=== PATIENT | female | born 1990 | race African-American/Black ===

== ENCOUNTER 2022-06-16 01:22 | Emergency (ER) | payer OTHER | END 2022-06-16 04:49 | disposition home or self-care (01) | LOC: CSHERS 01:22 | DX: O99.891 Other specified diseases and conditions complicating pregnancy (principal); R10.32 Left lower quadrant pain; Z3A.19 19 weeks gestation of pregnancy | CPT/HCPCS: 76815 ==

== ENCOUNTER 2022-10-02 08:07 | Day surgery (SDC) | payer MEDICAID, OTHER ==
[2022-10-02] MEDS ORDERED: hydrALAZINE 20 MG/ML VIAL SLOW IVP PRN (08:53)
[2022-10-02 09:39] LABS: Fetal Membranes Rupture No Membranes Rupture (No Rupture)
== END 2022-10-02 10:45 | disposition home health service (06) ==
LOC: CSHLD/OP 08:07
PROVIDERS: ATTEND Obstetrics & Gynecology
DX: O98.813 Other maternal infectious and parasitic diseases complicating pregnancy, third trimester (principal); B37.31 Acute candidiasis of vulva and vagina; Z03.71 Encounter for suspected problem with amniotic cavity and membrane ruled out; Z3A.34 34 weeks gestation of pregnancy
CPT/HCPCS: 84112; 87480; 87510; 87660; 99285

== ENCOUNTER 2022-10-14 08:59 | Inpatient (IN) | payer MEDICAID ==
[2022-10-14 09:21] VITALS: BMI 21.4
[2022-10-14] MEDS ORDERED: Ondansetron PF 4 MG/2 ML Vial IVP PRN (09:31)
[2022-10-14] MEDS ORDERED: Boostrix 0.5 ML (Tdap) VIAL (>/=7 yrs of age) IM ONE (09:31)
[2022-10-14] MEDS ORDERED: Milk Of Magnesia 30 ML UDCUP PO PRN (09:31)
[2022-10-14] MEDS ORDERED: Misoprostol 200 MCG TAB VAG PRN (09:31)
[2022-10-14] MEDS ORDERED: Bisacodyl 10 MG SUPP PR PRN (09:31)
[2022-10-14] MEDS ORDERED: hydrALAZINE 20 MG/ML VIAL SLOW IVP PRN (09:31)
[2022-10-14] MEDS ORDERED: Benzocaine-Menthol 82.5 ML CAN TOP PRN (09:31)
[2022-10-14] MEDS ORDERED: Lidocaine 1% (PF) 30 ML VIAL SC PRN (09:31)
[2022-10-14] MEDS ORDERED: NS w/ Oxytocin 30 units 500 ML IV SCH (09:45)
[2022-10-14] MEDS: Ibuprofen 800 MG TAB PO SCH ×3 (10:11→19:07)
[2022-10-14] MEDS ORDERED: HYDROcodone/Acetaminophen 5/325 mg Tablet PO SCH (10:30)
[2022-10-14 11:18] LABS: Bilirubin Neg (Negative); Blood, Urine 250 (Negative); Glucose, Urine (Dipstick) Normal (Negative); Ketone, Urine Negative (Negative); Leukocyte 500 (Negative); Nitrite Negative (Negative); Protein, Urine (Dipstick) 100 mg/dl (Neg-Trace); Urobilinogen Normal mg/dL (Less than 2)
[2022-10-14 11:28] LABS: Hemoglobin 9.8 g/dL (12.0-15.5); Mean Corpuscular HGB CONC 31.9 g/dL (32.0-36.0); Mean Corpuscular Hemoglobin 22.6 pg (27.0-33.0); Mean Corpuscular Volume 70.7 fl (81.6-98.3); Mean Platelet Volume 10.1 fl (7.4-10.4); Platelet Count 273 10x3/uL (150-450); RBC Distribution Width 17.4 % (11.5-14.5); Red Blood Cell (RBC) Count 4.34 10x6/uL (3.90-5.03); White Blood Cell (WBC) Count 13.2 10x3/uL (3.5-10.5)
[2022-10-14 11:29] LABS: Amphetamine Not Detected (NotDetected); Barbiturates Screen Not Detected (NotDetected); Benzodiazepine Screen Not Detected (NotDetected); Clarity Cloudy (Clear); Cocaine Metabolite Screen Not Detected (NotDetected); Methadone Not Detected (NotDetected); Methamphetamine Not Detected (NotDetected); Opiate Screen Not Detected (NotDetected); Oxycodone Screen Not Detected (NotDetected); Phencyclidine (PCP) Not Detected (NotDetected); THC/Cannabinoid Screen Not Detected (NotDetected); Tricyclic Screen Not Detected (NotDetected)
[2022-10-14 11:39] LABS: RBC/HPF Greater than 50 HPF (0-3)
[2022-10-14 11:40] LABS: Bacteria/HPF Rare-Few HPF (None Seen); Squamous Epithelial 0-3 HPF (0-3)
[2022-10-14 12:07] LABS: Syphilis Antibody Nonreactive (Nonreactive); Syphilis Antibody Index 0.07 S/CO (<1.00 Non-Reactive)
[2022-10-14 12:08] LABS: HIV (1/2) Antibody/Antigen Non-Reactive (NonReactive); HIV 1/2 INDEX 0.09 S/CO (<1.00)
[2022-10-14 15:34] LABS: HBSAB Concentration 14239.54 mIU/mL
[2022-10-14 15:35] LABS: Hep B Surf AB Reactive (NonReactive)
[2022-10-14 17:02] LABS: SARS-CoV-2 NAA Rapid Test Not Detected (NotDetected)
[2022-10-14] MEDS: Ferrous Sulfate 325 MG TAB PO SCH (19:08)
[2022-10-14] MEDS: Docusate 100 MG CAP PO SCH (21:19)
[2022-10-14 23:27] LABS: HBSAg Index 0.24 S/CO (0-0.99); Hep B Surf Ag Non-Reactive S/CO (NonReactive)
[2022-10-15] MEDS: Ibuprofen 800 MG TAB PO SCH ×3 (01:01→18:07)
[2022-10-15] MEDS: Prenatal Vitamin 1 TAB PO SCH (08:09)
[2022-10-15] MEDS: Docusate 100 MG CAP PO SCH ×2 (08:09→21:18)
[2022-10-15] MEDS: Ferrous Sulfate 325 MG TAB PO SCH ×2 (08:09→18:07)
[2022-10-15 21:41] VITALS: TEMP 98.4
[2022-10-16] MEDS: Ibuprofen 800 MG TAB PO SCH ×2 (01:57→14:04)
[2022-10-16] MEDS: Docusate 100 MG CAP PO SCH (08:02)
[2022-10-16] MEDS: Prenatal Vitamin 1 TAB PO SCH (08:02)
[2022-10-16] MEDS: Ferrous Sulfate 325 MG TAB PO SCH (08:02)
[2022-10-16 09:26] VITALS: BP 130/72
== END 2022-10-16 15:15 | disposition home or self-care (01) | DRG 776 ==
LOC: CSHLD/OP 08:59 → CSHLD 09:04 → CSHPP 11:31
PROVIDERS: ADMIT Obstetrics & Gynecology; ATTEND Obstetrics & Gynecology
DX: O99.03 Anemia complicating the puerperium (principal); D57.3 Sickle-cell trait; Z20.822 Contact with and (suspected) exposure to COVID-19; Z88.5 Allergy status to narcotic agent
CPT/HCPCS: 80306; 81001; 85027; 86706; 86762; 86780; 86850; 86900; 86901; 87340; 87389; U0002

== ENCOUNTER 2024-06-21 21:34 | Inpatient (IN) | payer BC, MEDICAID ==
[2024-06-21 22:00] VITALS: BMI 23.6
[2024-06-21] MEDS ORDERED: Misoprostol 200 MCG TAB PR PRN (22:31)
[2024-06-21] MEDS ORDERED: Tranexamic Acid 1,000 MG/10 ML VIAL IVP PRN (22:31)
[2024-06-21] MEDS ORDERED: Lidocaine 1% (PF) 30 ML VIAL SC PRN (22:31)
[2024-06-21] MEDS ORDERED: Carboprost 250 MCG/ML AMP IM PRN (22:31)
[2024-06-21] MEDS ORDERED: hydrALAZINE 20 MG/ML VIAL SLOW IVP PRN (22:31)
[2024-06-21] MEDS ORDERED: Ondansetron PF 4 MG/2 ML Vial IVP PRN (22:31)
[2024-06-21] MEDS ORDERED: Acetaminophen 500 MG TAB PO PRN (22:31)
[2024-06-21] MEDS ORDERED: Promethazine HCl 25 MG/ML VIAL IM PRN (22:31)
[2024-06-21] MEDS ORDERED: Zolpidem Tartrate 5 MG TAB PO PRN (22:31)
[2024-06-21] MEDS ORDERED: Ibuprofen 800 MG TAB PO PRN (22:31)
[2024-06-21] MEDS ORDERED: Magnesium Sulfate 20 gm/500 ml 20 GM/500 ML BAG IVPB SCH (22:45)
[2024-06-21] MEDS ORDERED: Oxytocin 30 units/NS 500 ML 500 ML IV SCH (22:45)
[2024-06-21] MEDS: Magnesium Sulfate 20 gm/500 ml 20 GM/500 ML BAG IVPB SCH (22:49)
[2024-06-21] MEDS: Betamet Acet/Betamet Na Ph 30 MG/5 ML VIAL IM SCH (22:50)
[2024-06-21 23:04] LABS: Hematocrit 25.6 % (34.9-44.5); Hemoglobin 8.3 g/dL (12.0-15.5); Mean Corpuscular HGB CONC 32.4 g/dL (32.0-36.0); Mean Corpuscular Hemoglobin 22.5 pg (27.0-33.0); Mean Corpuscular Volume 69.4 fL (81.6-98.3); Mean Platelet Volume 10.3 fL (7.4-10.4); Platelet Count 274 10x3/uL (150-450); RBC Distribution Width 16.9 % (11.5-14.5); Red Blood Cell (RBC) Count 3.69 10x6/uL (3.90-5.03); White Blood Cell (WBC) Count 9.7 10x3/uL (3.5-10.5)
[2024-06-21 23:36] LABS: HBsAg Index 0.26 S/CO (0-0.99); Hep B Surf Ag - L&D Non-Reactive S/CO (NonReactive)
[2024-06-21 23:38] LABS: Syphilis Antibody Nonreactive (Nonreactive); Syphilis Antibody Index 0.07 S/CO (<1.00 Non-Reactive)
[2024-06-21] MEDS: Penicillin G Potassium 5 MILL.UNITS in Sodium Chloride 0.9% 100 ML IVPB SCH (23:49)
[2024-06-21 23:53] LABS: ALT (SGPT) Less than 7 U/L (8-55); AST (SGOT) 11 U/L (5-34); Alkaline Phosphatase 134 U/L (40-110); Anion Gap 14 mmol/L (10-20); BUN (Urea Nitrogen) 5 mg/dL (7.0-18.7); Bilirubin, Total 0.5 mg/dL (0.2-1.2); Calc. Creatinine Clearance 141 mL/min (70-130); Calcium 9.3 mg/dL (7.8-10.44); Carbon Dioxide 23 mmol/L (22-29); Chloride 106 mmol/L (98-107); Estimated GFR 119; Globulin 3.6 g/dL (2.4-3.5); Glucose 79 mg/dL (70-105); Potassium 2.7 mmol/L (3.5-5.1); Protein, Total 6.6 g/dL (6.0-8.3); Sodium 140 mmol/L (136-145)
[2024-06-22 00:10] LABS: Bilirubin Neg (Negative); Blood, Urine Negative (Negative); Clarity Clear (Clear); Glucose, Urine (Dipstick) Normal (Negative); Ketone, Urine 5 mg/dL (Negative); Leukocyte Negative (Negative); Nitrite Negative (Negative); Protein, Urine (Dipstick) Negative (Neg-Trace); Specific Gravity, Urine 1.015 (1.005-1.030); Urobilinogen Normal mg/dL (Less than 2)
[2024-06-22 00:15] LABS: Amphetamine Not Detected (NotDetected); Barbiturates Screen Not Detected (NotDetected); Benzodiazepine Screen Not Detected (NotDetected); Cocaine Metabolite Screen Not Detected (NotDetected); Methadone Not Detected (NotDetected); Methamphetamine Not Detected (NotDetected); Opiate Screen Not Detected (NotDetected); Oxycodone Screen Not Detected (NotDetected); Phencyclidine (PCP) Not Detected (NotDetected); THC/Cannabinoid Screen Not Detected (NotDetected); Tricyclic Screen Not Detected (NotDetected)
[2024-06-22] MEDS: Potassium Chloride 20 MEQ TAB PO SCH ×2 (00:42→05:55)
[2024-06-22] MEDS: Penicillin G 2.5 MILL.units 2.5 MILL.UNITS in Premix 1 BAG IVPB SCH (03:57)
[2024-06-22 04:57] LABS: Anion Gap 13 mmol/L (10-20); BUN (Urea Nitrogen) 4 mg/dL (7.0-18.7); Calc. Creatinine Clearance 161 mL/min (70-130); Calcium 8.2 mg/dL (7.8-10.44); Carbon Dioxide 21 mmol/L (22-29); Chloride 107 mmol/L (98-107); Estimated GFR 123; Glucose 137 mg/dL (70-105); Sodium 138 mmol/L (136-145)
[2024-06-22 10:15] LABS: Anion Gap 13 mmol/L (10-20); BUN (Urea Nitrogen) Less than 4 mg/dL (7.0-18.7); Calc. Creatinine Clearance 150 mL/min (70-130); Carbon Dioxide 19 mmol/L (22-29); Chloride 108 mmol/L (98-107); Estimated GFR 121; Glucose 134 mg/dL (70-105); Potassium 3.4 mmol/L (3.5-5.1); Sodium 137 mmol/L (136-145)
[2024-06-22] MEDS: Magnesium Sulfate 20 gm/500 ml 20 GM/500 ML BAG ONE (15:43)
[2024-06-22] MEDS: fentaNYL 50 mcg/mL 1 mL Vial SLOW IVP PRN (19:52)
[2024-06-23] MEDS: Potassium Chloride 20 MEQ TAB PO SCH (08:51)
[2024-06-23] MEDS: Magnesium Sulfate 20 gm/500 ml 20 GM/500 ML BAG IVPB SCH (16:21)
[2024-06-23] MEDS ORDERED: Calcium Gluc 4.6 MEQ/10 ML (100 MG/ML) SLOW IVP PRN (16:22)
[2024-06-23] MEDS: Penicillin G Potassium 5 MILL.UNITS in Sodium Chloride 0.9% 100 ML IVPB SCH (16:40)
[2024-06-23] MEDS: Penicillin G 2.5 MILL.units 2.5 MILL.UNITS in Premix 1 BAG IVPB SCH (20:11)
[2024-06-24 04:36] LABS: Anion Gap 13 mmol/L (10-20); BUN (Urea Nitrogen) Less than 4 mg/dL (7.0-18.7); Calc. Creatinine Clearance 158 mL/min (70-130); Calcium 7.5 mg/dL (7.8-10.44); Carbon Dioxide 20 mmol/L (22-29); Chloride 110 mmol/L (98-107); Estimated GFR 122; Glucose 127 mg/dL (70-105); Potassium 2.9 mmol/L (3.5-5.1); Sodium 140 mmol/L (136-145)
[2024-06-24] MEDS: Potassium Chloride 20 MEQ TAB PO SCH ×3 (08:30→19:53)
[2024-06-24 12:24] LABS: Anion Gap 14 mmol/L (10-20); BUN (Urea Nitrogen) Less than 4 mg/dL (7.0-18.7); Calc. Creatinine Clearance 148 mL/min (70-130); Calcium 8.4 mg/dL (7.8-10.44); Carbon Dioxide 21 mmol/L (22-29); Chloride 108 mmol/L (98-107); Estimated GFR 121; Glucose 100 mg/dL (70-105); Potassium 3.1 mmol/L (3.5-5.1); Sodium 140 mmol/L (136-145)
[2024-06-24] MEDS: Penicillin G Potassium 5 MILL.UNITS VIAL ONE (13:58)
[2024-06-24] MEDS: Magnesium Sulfate 20 gm/500 ml 20 GM/500 ML BAG ONE (13:58)
[2024-06-25 07:37] LABS: Anion Gap 11 mmol/L (10-20); BUN (Urea Nitrogen) Less than 4 mg/dL (7.0-18.7); Calc. Creatinine Clearance 167 mL/min (70-130); Calcium 8.3 mg/dL (7.8-10.44); Carbon Dioxide 24 mmol/L (22-29); Chloride 107 mmol/L (98-107); Estimated GFR 124; Glucose 91 mg/dL (70-105); Sodium 139 mmol/L (136-145)
[2024-06-25 08:43] LABS: Anion Gap 15 mmol/L (10-20); BUN (Urea Nitrogen) Less than 4 mg/dL (7.0-18.7); Calc. Creatinine Clearance 153 mL/min (70-130); Calcium 8.6 mg/dL (7.8-10.44); Carbon Dioxide 21 mmol/L (22-29); Chloride 106 mmol/L (98-107); Estimated GFR 121; Glucose 103 mg/dL (70-105); Potassium 2.8 mmol/L (3.5-5.1); Sodium 139 mmol/L (136-145)
[2024-06-25] MEDS: Potassium Chloride 20 MEQ TAB PO SCH (09:41)
[2024-06-25 12:06] LABS: Fetal Membranes Rupture No Membranes Rupture (No Rupture)
[2024-06-25] MEDS: NIFEdipine 10 MG CAP PO PRN (12:53)
[2024-06-25] MEDS: Potassium Chloride 10 MEQ/100 ML PREMIX BAG IVPB SCH (13:58)
[2024-06-25] MEDS: Penicillin G 2.5 MILL.units 2.5 MILL.UNITS in Premix 1 BAG IVPB SCH (17:25)
[2024-06-25] MEDS: metroNIDAZOLE 250 MG TAB PO SCH (21:00)
[2024-06-25 21:02] VITALS: BP 127/70; TEMP 98.2
[2024-06-26] MEDS ORDERED: Ferrous Sulfate 325 MG TAB PO SCH (09:00)
== END 2024-06-25 21:09 | disposition home or self-care (01) | DRG 832 ==
LOC: CSHLD/OP 21:34 → CSHLD 23:08 → CSHANTE 06-24 13:20 → CSHLD 06-25 11:37 → CSHANTE 06-25 16:35
PROVIDERS: ADMIT Obstetrics & Gynecology; ATTEND Obstetrics & Gynecology
DX: O60.03 Preterm labor without delivery, third trimester (principal); O23.593 Infection of other part of genital tract in pregnancy, third trimester; Z3A.30 30 weeks gestation of pregnancy; E87.6 Hypokalemia; O99.283 Endocrine, nutritional and metabolic diseases complicating pregnancy, third trimester; O99.013 Anemia complicating pregnancy, third trimester
CPT/HCPCS: 36415; 36416; 76815; 76819; 80048; 80053; 80306; 81003; 84112; 85027; 86780; 86850; 86900; 86901; 87340; 87480; 87510; 87660; 99285; J0702; J2540; J3010; J3475; J3480